=== PATIENT | female | born 1975 | race Caucasian/White ===

== ENCOUNTER 2017-01-30 13:00 | Inpatient (IN) | payer BC ==
[~2017-01-30] VITALS: Ht 162.6 cm; Wt 87.0 kg
--- NOTE | ~2017-01-30 | FD ---
ADMIT: 01/30/2017 RM/LOC: 307 [facility] MR#: [id number] [address] [address] ANTHONY WOODRUFF [address] [place] [address] Final Diagnosis SEX: F AGE: 41 : 1975 ADMISSION DATE: 01/30/2017 DISCHARGE DATE: 02/01/2017 REASON FOR ADMISSION: Chest pain with EKG changes. Stephanie Tenorio RN scribing for Dr. Bhupendra Paez. CONSULTS OBTAINED: Dr. Jasso consulted on 01/30/2017, for medical management. PROCEDURES PERFORMED: On 01/30/[address] Bhupendra Paez, left heart catheterization with selective coronary angiography, left ventriculogram FFR/IFR of LAD. FINAL DIAGNOSES: 1. Hypertension. 2. Anxiety and depression. 3. Acute coronary syndrome. 4. Diabetes mellitus. 5. Takotsubo cardiomyopathy. Stephanie Tenorio RN / Bhupendra Paez MD / nancyl JOB #: [id number] CC: Bhupendra Paez MD, Attending Physician Bhupendra Paez MD, Family Physician
--- NOTE | ~2017-01-30 | ECH ---
Transthoracic Echocardiography Report (TTE) Demographics Patient Name ANTHONY WOODRUFF Date of Study 01/30/2017 L Patient Number [id number] Visit Number [id number] Date of 1975 Room Number 307 Accession Number [id number] Gender Female Age 41 year(s) Referring Philippe Huizar Corporate General Manager Pati Perez Physician RDCS Physician Interpreting Philippe WOODS Superintendent Of Generation Physician Bhupendra Supervising Ordering Physician Philippe WOODS MD/DEMI Huizar Nurse Stress Gridcap Machine Operator Conclusions Contractility Score Summary At rest the following contractility abnormalities were noted: Hypokinesis of the Apical inferior, the Apical septal, the Apical lateral, the Apical anterior and the Apical cap segments. Contractility of all other segments appeared normal. Summary Technically adequate exam. The estimated left ventricular ejection fraction is 55-60%. No significant valvular abnormalities. Recommendation The patient was given the results of the exam during their hospital stay. Procedure Type of Study TTE procedure:Echo Complete SF. Procedure Date Date: 01/30/2017 Start: 03:58 PM Technical Quality: Adequate visualization Indications:Chest pain and Hypertension. Appropriate Use Criteria: 9 Height: 66 inches Weight: 187.39 pounds BSA: 1.95 m Rhythm: Sinus tachycardia HR: 101 bpm BP: 135/91 mmHg Allergies - No known allergies. M-Mode/2D Measurements LV Diastolic Dimension: 4.38 cm LV Systolic Dimension: 3.25 cm LV Septum Diastolic: 0.71 cm LV PW Diastolic: 0.69 cm AO Root Dimension: 2.72 cm Cardiac Output: 3.76 l/min LA Dimension: 2.59 cm Cardiac Index: 1.93 l/min*m RV Diastolic Dimension: 3.57 cm LA volume index: 18 ml/m LVOT: 2.05 cm LVOT VTI: 11.28 cm RV Base: 3.5 cm LV Stroke volume: 37.21 ml RV Mid: 2 cm LV Stroke volume index: 19.08 ml/m TAPSE: 3 cm TDI-S': 16 cm/s Doppler Measurements AV Peak Velocity: 1 m/s MV Peak E-Wave: 0.96 m/s AV Peak Gradient: 4 mmHg AV Mean Gradient: 2.58 mmHg MV P1/2t: 62.2 msec LVOT Peak Velocity: 0.88 m/s AV Area (Continuity):2.2 cm MV Area (PHT): 3.54 cm TR Velocity:2.73 m/s PV Peak Velocity: 0.85 m/s TR Gradient:29.81 mmHg PV Peak Gradient: 2.89 mmHg Estimated RAP:3 mmHg Estimated PASP: 32.81 mmHg Estimated RVSP: 33 mmHg A' Septal Velocity: 0.14 m/s E' Septal Velocity: 0.07 m/s A' Lateral Velocity: 0.12 m/s E' Lateral Velocity: 0.07 m/s RA Area: 13.48 cm Findings Left Ventricle Normal left ventricle size and function. Diastolic function indeterminate due to patient's arrhythmia. Right Ventricle Normal right ventricle structure and function. Left Atrium Normal left atrial size. Right Atrium Normal right atrial size. Mitral Valve Normal mitral valve structure and function. No mitral regurgitation by color Doppler. Aortic Valve Normal aortic valve structure and function. Tricuspid Valve Normal tricuspid valve structure and function. Mild tricuspid regurgitation by color Doppler. Normal pulmonary pressures. Pulmonic Valve Normal pulmonic valve structure and function. Pericardial Effusion No evidence of pericardial effusion. Miscellaneous Visualized portions of the aortic root and ascending aorta appear normal in size. Pleural Effusion No evidence of pleural effusion. Contractility Score LV regional wall motion:(0-Non visualized 1-Normal 2-Hypokinesis 3-Akinesis 4-Dyskinesis 5-Aneurysm) Signature
--- NOTE | ~2017-01-30 | CATH ---
Cardiac Diagnostic + PCI Report Demographics Patient Name KACY CRUZ Gender Female L Date of 1975 Age 41 year(s) Patient Number [id number] Date of Study 01/30/2017 Visit Number [id number] Room Number 307 Corporate ID Ht 167.64 cm Wt 85 kg Accession Number [id number] BSA 1.95 m kg/m Referring Jodee Grant Primary Physician Physician MD Herminio Paez MD Secondary Physician Physician Bhupendra Diagnostic Philippe WOODS Assisting Physician Physician Bhupendra Interventional Philippe WOODS Physician Designer Writer Physician Bhupendra Findings and Conclusions Diagnostic Findings and Conclusion Mid LAD lesion of 40%. Normal LVEDP. Normal EF with apical hypokinesis. Diagnostic Recommendations iFR LAD lesion. Interventional Findings and Conclusion Non significant iFR of LAD. Takotsubo cardiomyopathy. Interventional Recommendations Medical therapy. Procedure Description The patient was brought to the diagnostic cardiac catheterization laboratory in the fasting, non-sedated state. Informed consent was obtained in the written and verbal form after the risks and benefits were explained. The patient had no further questions and agreed to proceed. The planned puncture-incision site(s) were shaved and prepped with ChloraPrep and draped in the usual sterile manner. Conscious sedation, supplemental oxygen, and pain control medications were delivered by a registered nurse under physician guidance. Surface ECG rhythm, blood pressure measurement, and pulse oximetry were monitored throughout the procedure. Arterial access. The access site was infiltrated with lidocaine. The right radial vessel was entered with the Seldinger technique. A sheath was advanced into the vessel and used for catheter placement. Selective left coronary angiography. A 6F Tig and 6F FL 3.5 catheter was advanced into the left coronary vessel ostium under Fluoroscopic guidance. Contrast was injected by hand. Images were obtained in multiple projections. Selective right coronary angiography. A 6F Tig catheter was advanced into the right coronary vessel ostium under fluoroscopic guidance. Contrast was injected by hand. Images were obtained in multiple projections. Left heart catheterization. A 6F Tigcatheter was advanced across the aortic valve to the left ventricle under fluoroscopic guidance. Resting hemodynamics were obtained. Arterial artery hemostasis was achieved using a TR band. The patient was transferred to a regular nursing floor via cart accompanied by a nurse. The patient left the laboratory in stable condition. Procedure Procedure Type Diagnostic procedure:Ventriculogram:, Left, Angiography:, Coronary Angios w/LHC PCI procedure:Additional Imaging:, FFR/iFR:, Initial Vessel The procedure was explained in detail to the patient. Risks, complications and alternative treatments were reviewed. Written consent was obtained. Medications Reviewed with Patient prior to Procedure. Complications: No Complication. Angiographic Findings Dominance: Right Cardiac Arteries and Lesion Findings LMCA: Normal (0% Stenosis). LAD: Abnormal. Lesion on Mid LAD: 40% stenosis . FFR + + + + !FFR !Stage/Medication !Dosage ! + + + + !0.95 ! ! ! + + + + !0.95 ! ! ! + + + + Devices used - VERRATA. Number of passes: 1. LCx: Normal (0% Stenosis). RCA: Normal (0% Stenosis). Coronary Tree Procedure Data Procedure Date Date: 01/30/2017Start: 01:56 PMEnd: 02:43 PM Entry Locations - Percutaneous access was performed through the Right Radial artery (Primary location). A 6 Fr sheath was inserted. Hemostasis was successfully obtained using a TR band. Procedure Medications Order and Administration + + +---------+--------+ !Time !Medication !Dosage !Route ! + + +---------+--------+ !01/30/2017 01:57!SF Post Radial Cocktail: 200mcg Nitro,! !I.A. ! !PM !2.5 Verapamil ! ! ! + + +---------+--------+ !01/30/2017 02:00!Versed !2 mg !I.V. ! !PM ! ! ! ! + + +---------+--------+ !01/30/2017 02:01!Fentanyl !50 mcg !I.V. ! !PM ! ! ! ! + + +---------+--------01/30/2017 02:01!Sodium Chloride !10 ml !I.V. ! !PM ! ! ! ! + + +---------+--------+ !01/30/2017 02:05!Versed !1 mg !I.V. ! !PM ! ! ! ! + + +---------+--------+ !01/30/2017 02:05!Fentanyl !25 mcg !I.V. ! !PM ! ! ! ! + + +---------+--------+ !01/30/2017 02:06!Lopressor !5 mg !I.V. ! !PM ! ! ! ! + + +---------+--------+ !01/30/2017 02:12!Versed !1 mg !I.V. ! !PM ! ! ! ! + + +---------+--------+ !01/30/2017 02:12!Fentanyl !25 mcg !I.V. ! !PM ! ! ! ! + + +---------+--------+ !01/30/2017 02:13!Lopressor !5 mg !I.V. ! !PM ! ! ! ! + + +---------+--------+ !01/30/2017 02:20!Heparin (ACC_3) !2000 !I.V. ! !PM ! !units ! ! + + +---------+--------+ !01/30/2017 02:28!Versed !1 mg !I.V. ! !PM ! ! ! ! + + +---------+--------+ !01/30/2017 02:28!Fentanyl !25 mcg !I.V. ! !PM ! ! ! ! + + +---------+--------+ Devices Used - A6F TIG CATHETERwas used for:Left coronary angiography. - AGUIDE CATHETER 6FR FL 3.5 100CMwas used for:Left coronary angiography.Unable to cannulate the vessel. - AGUIDE CATHETER 6FR AL .075 100CMwas used for:Left coronary angiography. Contrast Material - Isovue [id number] ml Fluoroscopy Time: Diagnostic: 0:00 minutes. Total: 0:00 minutes. Fluoroscopy Dose: Diagnostic: 1140 mGy. Total: 1140 mGy. Estimated Blood Loss: 15 ml. Medical History Allergies - No known allergies. Risk Factors The patient risk factors include:treated hypertension, family history of premature CAD, last creatinine: 0.8 mg/dl and creatinine clearance: 126.69 ml/min. Admission Data Admission Date: 01/30/2017 Admission Time: 03:05 PM Insurance Payors: Private health insurance. Clinical Evaluation Leading to Procedure Diagnosed on 01/30/2017 12:00 AM. - The patient's CAD presentation was assessed as: STEMI. VA LV function assessed as:Normal. Ejection Fraction - 01/30/2017 - Method: LV gram. EF%: 60. Hemodynamics Condition: Rest O2 Consumption: Estimated: 249.63Heart Rate: 138 bpm Pressures (mmHg) +-----+ + !Site !Pressure ! +-----+ + !AO !103/68 (86) ! +-----+ + !LV !116/2 ,5 ! +-----+ + !AO !118/85 (101) ! +-----+ + !LV !124/4 ,8 ! +-----+ + !LV !109/7 ,12 ! +-----+ + !AO !113/75 (94) ! +-----+ + !LV !111/7 ,12 ! +-----+ + Valve Gradients and Areas + +---------+---------+---------+ +---------+ + !Valve !Peak !Mean !Area !Index !Flow !Source ! + +---------+---------+---------+ +---------+ + !Aortic !0 !0 ! ! ! ! ! + +---------+---------+---------+ +---------+ + !Aortic !0 !0 ! ! ! ! ! + +---------+---------+---------+ +---------+ + Shunts Oxygen Values O2 Capacity 160.48 O2 Consumption 249.63 Signatures
--- NOTE | 2017-01-31 01:40 | ER ---
ADMIT: 01/30/2017 RM/LOC: 307 [facility] MR#: [id number] [id number] [place], [place] [address] ANTHONY WOODRUFF [address] [place] [address] Emergency Room Report SEX: F AGE: 41 : 1975 DATE: 01/30/2017 See T-sheet for complete H and P. ADDENDUM: A 41-year-old female with no history other than hypertension presents to the ER complaining of chest pain that has been going on for the past two and a half days. It is wax and wane in severity. At this time, it is the worse it has been since it started. She has no personal coronary artery disease or cardiac history. She states that with this pain it is a severe pressure in the center of her chest which has associated nausea, diaphoresis, and shortness of breath. She feels lightheaded and weak in general. This pain is made worse with exertion and somewhat improved with rest. She has a family history of a dad with some heart attacks but she is not exactly sure when he began having heart attacks. She is treated for hypertension, but otherwise has no other medical problems. On physical exam, the patient is somewhat ashen and appears like she is quite uncomfortable. Her heart is tachycardic. Lungs are clear to auscultation. She has good pulses in all 4 extremities and she is slightly diaphoretic. EKG done shortly after arrival which shows ST elevation in leads V3, V4, V5, and V6. She is also tachycardic at rate of 120. Chest x-ray shows nothing acute and labs are pending. Her vital signs were 149/91, heart rate of 123, respirations 19, and temp 97.2. As soon as I saw the EKG, I contacted Dr. Paez, who is on for Cardiology, he came in and saw the patient in the ER. She was prepped to go to the laborer demolition. The patient was taken from the ER directly to the catheterization lab with a plan to have her admitted afterwards Dr. Paez's service. 30 minutes of critical care time was spent on this patient. She is diagnosed with: 1. Acute KS/STEMI. 2. Chest pain. Romulo Mcclellan MD/ riley JOB #: [id number] CC: Bhupendra Paez MD, Attending Physician Bhupendra Paez MD, Family Physician
[2017-02-02] MEDS ORDERED: ASPIR 8181 MG PO (10:49)
[2017-02-02] MEDS ORDERED: CYMBALTA60 MG PO (10:50)
[2017-02-02] MEDS ORDERED: PLAVIX75 MG PO (10:50)
[2017-02-02] MEDS ORDERED: TYLENOL DPS325 MG PO (10:50)
[2017-02-02] MEDS ORDERED: ZESTRIL DPS5 MG PO (10:50)
[2017-02-02] MEDS ORDERED: DESYREL-DPS50 MG PO (10:50)
[2017-02-02] MEDS ORDERED: COREG DPS6.25 MG PO (10:50)
[2017-02-02] MEDS ORDERED: NITROSTAT0.4 MG SL (10:51)
[2017-02-02] MEDS ORDERED: XANAX DPS0.5 MG PO (10:51)
--- NOTE | 2017-02-03 07:08 | HP ---
ADMIT: 01/30/2017 RM/LOC: [facility] MR#: [id number] 26[address] [facility] [address] [place], [place] [address] ANTHONY WOODRUFF [address] [place] [address] History and Physical SEX: F AGE: 41 : 1975 CORRECTED: 02/02/2017 1039 DJS DATE OF SERVICE: 01/30/2017 REASON FOR CONSULTATION: Chest pain and EKG changes. HISTORY OF PRESENT ILLNESS: Anthony is a 41-year-old female, who I was asked to see emergently in the emergency room for chest pain and EKG changes. She states that she has had a pressure in her chest that has been constant since evening. She has had some nausea. Yesterday she did have some vomiting. She has no prior cardiac history, but does have history of hypertension. Today, she was visiting a friend and continued to have chest discomfort, and the friend states she started to look poorly, so they brought her to the emergency room. There, her EKG showed anterolateral ST elevations and I was called emergently to evaluate her. She has had continued chest pain since with no relief. PAST MEDICAL HISTORY: History of anxiety, history of depression, history of vaginal delivery x2, and history of hypertension. ALLERGIES: NO KNOWN DRUG ALLERGIES. MEDICATIONS: 1. Cymbalta. 2. Hypertension. 3. Xanax. SOCIAL HISTORY: She does not smoke. She states she rarely drinks alcohol. FAMILY HISTORY: She said her father is in his 50s and has had bypass and stents. She does not have the details as to what age this started. REVIEW OF SYSTEMS: GENERAL: Denies any fever, chills, or sweats. HEENT: Denies any visual changes. No difficulty swallowing. No decreased hearing. RESPIRATORY: No respiratory distress. CARDIAC: As per HPI. NEUROLOGIC: No history of TIA or strokes. SKIN: No rashes. GENITOURINARY: Denies any dysuria or hematuria. MUSCULOSKELETAL: Denies any arthritis or joint pains. PSYCHIATRIC: She does have a history of anxiety and depression. She takes p.r.n. Xanax. GI: She was nauseous and vomited yesterday. All other systems reviewed and negative. PHYSICAL EXAMINATION: VITAL SIGNS: Blood pressure 149/91, pulse is 100, respirations 19, temperature 97.2, and O2 sats were 98% on room air. GENERAL: She is in mild distress, but she is alert and oriented. ADMIT: 01/30/2017 RM/LOC: [facility] MR#: [id number] [address] [place] [id number] [facility] [address] [place] [address] History and Physical SEX: F AGE: 41 : 1975 HEENT: Normocephalic, atraumatic. Moist mucous membranes. NECK: Supple. No lymphadenopathy. No carotid bruits. JVP is normal. HEART: Tachycardic but regular. There are no murmurs, rubs, or gallops. LUNGS: Clear to auscultation bilaterally. ABDOMEN: Soft, nontender, and nondistended. EXTREMITIES: No cyanosis, clubbing, or edema. NEUROLOGIC: Cranial nerves II through XII intact. PSYCHIATRIC: She is alert, oriented, and appropriate. DIAGNOSTIC DATA: EKG shows anterolateral ST elevations. IMPRESSION AND PLAN: 1. Anterolateral ST-elevation myocardial infarction. 2. Hypertension. RECOMMENDATIONS: She has had symptoms for over 36 hours but is still having chest pain, and her EKG shows changes. Given her continued symptoms despite being over 24 hours since onset of symptoms, I recommend that we proceed with cardiac catheterization. I discussed the risks and benefits, including but not limited to, stroke, heart attack, , bleeding, infection, and renal failure. The patient understands these risks and agrees to proceed. We will have further recommendations as her care progresses. Bhupendra Paez MD/ riley JOB #: [id number] CC: Bhupendra Paez MD, Attending Physician Bhupendra Paez MD, Family Physician CORRECTED: 02/02/2017 1039 DJS
--- NOTE | 2017-02-03 17:14 | CO ---
ADMIT: 01/30/2017 RM/LOC: 307 [facility] MR#: [id number] 26[address] [facility] [address] [place], [place] [address] ANTHONY WOODRUFF [address] [place] [address] Consultation SEX: F AGE: 41 : 1975 DATE OF CONSULTATION: 01/30/2017 ATTENDING PHYSICIAN: Bhupendra Paez MD CONSULTING PHYSICIAN: Sonia Jasso MD REASON FOR CONSULT: Medical management. HISTORY OF PRESENT ILLNESS: The patient is a 41-year-old white female who presented to the emergency room today with chest pain for the last 3 days that has been worsening. She was feeling pretty stressed, and says about a month ago maybe she was diagnosed with hypertension and was started on medicines. She has been checking her blood pressure at home, and it was getting quite high over the last 3 days, which was making her more anxious. She also has been stressed since her daughter got out of school. She is starting middle school next year and that makes mom very nervous. Mom does tend to have depression and anxiety and has been on Cymbalta for about 10 years now and takes Xanax occasionally. She last ate yesterday. She was not able to sleep though for the last 3 nights and just been very anxious. She does have a headache off and on. No tremors or sweating. No nausea, vomiting, or abdominal pain. Does not really feel short of breath. PAST MEDICAL HISTORY: Again, the patient has had chronic issues with depression and anxiety and then a newly diagnosed hypertension. She has had 2 prior vaginal deliveries without complications. MEDICATIONS: 1. Cymbalta, she takes 60 mg daily. 2. Xanax, unknown dose. 3. A blood pressure medication that she cannot recall. ALLERGIES: NO KNOWN DRUG ALLERGIES. SOCIAL HISTORY: The patient is and has 2 daughters, one is 21 and the other is 11. She is not a smoker, and no prior tobacco use. Does rarely drink alcohol. Denies any drug use. 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 FAMILY HISTORY: The patient's father, she states has had strokes and heart disease with stents and also has high blood pressure, high cholesterol, and diabetes. Mother has hypertension and apparently has blood on her brain. REVIEW OF SYSTEMS: CONSTITUTIONAL: No fevers, chills, or generalized weakness. HEENT: Does get a headache, but no vision changes or cold symptoms. CARDIAC: As above. RESPIRATORY: No shortness of breath or cough. GASTROINTESTINAL: No abdominal pain, nausea, or vomiting, and denies heartburn. GENITOURINARY: She is getting normal menses and is having her period right ADMIT: 01/30/2017 RM/LOC: [address] [place] [address] MR#: [id number] [address] [address] ANTHONY WOODRUFF [address] [place] [address] Consultation SEX: F AGE: 41 : 1975 now. It is not too heavy or crampy. Her has had a vasectomy for control. MUSCULOSKELETAL: Denies any joint aches or pains or swelling. SKIN: No rashes. NEUROLOGIC: No focal numbness, tingling, or weakness. PSYCHIATRIC: Again, a history of depression and anxiety. PHYSICAL EXAMINATION: VITAL SIGNS: Temperature is 99.1, blood pressure 164/101 now with a pulse of 110, respirations are 23, and saturation 91% on room air. Weight is 193 pounds. GENERAL: She is alert and oriented x3 and in no acute distress. HEENT: Head is atraumatic and normocephalic. Sclerae are clear. Pupils are round and reactive. Oropharynx looks moist. NECK: Supple with no lymphadenopathy, thyromegaly, or JVD. HEART: Tachycardic, but regular with no murmurs. LUNGS: Sound clear to auscultation bilaterally. ABDOMEN: Soft, nondistended, and nontender with good bowel sounds. EXTREMITIES: No edema, and she has no posterior calf tenderness. No varicose veins. She has 2+ dorsalis pedis pulses. SKIN: Without rashes. MUSCULOSKELETAL: No joint effusion, erythema, or warmth noted. PSYCHIATRIC: She is quite anxious and a little tearful at times. LABORATORY AND DIAGNOSTIC DATA: White blood cell count 12,900, hemoglobin 11.8, and platelets 380. BUN 9, creatinine 0.8, and glucose was 191. She had normal coags. AST was just slightly elevated at 94, but ALT was normal. CK was 595, MB 26, and troponin I 16.2, EKG showed sinus tachycardia with left atrial enlargement, and she had ST elevation in the anterolateral leads. Catheterization has been done and showed no obstructive coronary artery disease, but she did have apical hypokinesis. Chest x-ray was normal. UA was normal. ADMIT: 01/30/2017 RM/LOC: 307 [facility] MR#: [id number] [address] [address] ANTHONY WOODRUFF [address] [place] [address] Consultation SEX: F AGE: 41 : 1975 ASSESSMENT: 1. Stress cardiomyopathy. 2. Acute stress. 3. Depression and anxiety. 4. Hypertension, rule out secondary causes. 5. Tachycardia. 6. Mild anemia, microcytic. PLAN: We will workup secondary causes and treat those as appropriate. We will also treat her anxiety with as needed Xanax and continue her Cymbalta, and we will start her on trazodone at night for sleep. We will continue to follow along and make any other changes as needed. Sonia Jasso MD/ riley JOB #: [id number] CC: Bhupendra Paez MD, Attending Physician Bhupendra Paez MD, Family Physician
== END 2017-02-01 11:40 | disposition home or self-care (01) | DRG 287 ==
LOC: ER 13:00 → SSS 13:45 → 3ICU 15:05
PROVIDERS: ADMIT Internal Medicine Cardiovascular Disease
PROC: B2111ZZ Fluoroscopy of Multiple Coronary Arteries using Low Osmolar Contrast (ICD-10-PCS; principal; 2017-01-30)
PROC: 4A023N7 Measurement of Cardiac Sampling and Pressure, Left Heart, Percutaneous Approach (ICD-10-PCS; principal; 2017-01-30)
PROC: 4A033BC Measurement of Arterial Pressure, Coronary, Percutaneous Approach (ICD-10-PCS; principal; 2017-01-30)
PROC: B2151ZZ Fluoroscopy of Left Heart using Low Osmolar Contrast (ICD-10-PCS; principal; 2017-01-30)
DX: I51.81 Takotsubo syndrome (principal); I24.9 Acute ischemic heart disease, unspecified; I10 Essential (primary) hypertension; F41.9 Anxiety disorder, unspecified; F32.9 Major depressive disorder, single episode, unspecified; D50.9 Iron deficiency anemia, unspecified; R73.03 Prediabetes; Z82.49 Family history of ischemic heart disease and other diseases of the circulatory system